=== PATIENT | male | born 1985 | race African-American/Black ===

== ENCOUNTER → 2023-07-25 10:16 | Outpatient (CLI) | payer OTHER, SELFPAY ==
--- NOTE | 2023-07-25 10:26 | DI.RAD.S_ITS ---
PROCEDURE: XR FACIAL BONES MIN 3V INDICATIONS: FACIAL BONE FRACTURE TECHNIQUE: 3 views of the facial bones were acquired. COMPARISON: None. FINDINGS: Sinuses: Visualized sinuses demonstrate no air-fluid levels or mucosal thickening. Bones: No fractures. No suspicious bony lesions. Orbital rims and zygomatic arches appear intact. Maxillofacial cortical sideplate and screws in appropriate position Soft tissues: No suspicious soft tissue densities. IMPRESSION: Healed instrumented maxillofacial fractures Approved by: Wilder Lundberg M.D. on 07/25/2023 at 19:28
== END ==
PROVIDERS: Referring Provider Chiropractor; Visit Provider Chiropractor
DX: S02.401D Maxillary fracture, unspecified side, subsequent encounter for fracture with routine healing (principal); X58.XXXD Exposure to other specified factors, subsequent encounter
CPT/HCPCS: 70150